=== PATIENT | male | born 2000 | race Caucasian/White ===

== ENCOUNTER 2021-02-03 13:19 | Emergency (ER) | payer BC ==
--- NOTE | 2021-02-03 14:10 | EDM.PDOC ---
ED HPI GENERAL MEDICAL PROBLEM - General Chief Complaint: Back Pain or Injury Stated Complaint: MIDDLE BACK SHOOTING PAIN Time Seen by Provider: 02/03/21 13:55 Source of Information: Reports: Patient, RN. Denies: Old Records History Limitations: Reports: No Limitations - History of Present Illness INITIAL COMMENTS - FREE TEXT/NARRATIVE: 20 yo male from [place] is here working on the [email or web address]. He is a new hire and so far has only been through orientation. He really hasn't had to do any physical labor up to now. Before this he was unemployed for roughly 3 mos. Last night he was walking across a parking lot and felt sudden onset of severe low back pain that almost brought him to his knees. He was able to make it back to his hotel and slept well. Today he woke with mild pain only and then later he was again walking and felt the same intense pain. He thinks the pain went down both legs. No bowel or bladder incont. No hx of back trauma. No flank pain. Onset: Sudden Onset Date: 02/02/21 Duration: Hour(s):, Waxing/Waning Location: Reports: Back (low) Quality: Reports: Sharp, Stabbing Severity: Moderate (now, was worse) Improves with: Reports: Rest Worsens with: Reports: Movement (seems to occur after/during walking) Context: Reports: Other (See HPI) Associated Symptoms: Reports: No Other Symptoms. 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) - Related Data Allergies Allergy/AdvReac Type Severity Reaction Status Date / Time antibiotic Allergy Other Uncoded 02/03/21 13:43 Home Meds: Home Meds NK [No Known Home Meds] 02/03/21 [History] Past Medical History Endocrine/Metabolic History: Reports: Obesity/BMI 30+ - Past Surgical History Head Surgeries/Procedures: Reports: None Endocrine Surgical History: Reports: None Dermatological Surgical History: Reports: None Social & Family History - Tobacco Use Used Tobacco, but Quit: No Second Hand Smoke Exposure: No - Caffeine Use Caffeine Use: Reports: None - Recreational Drug Use Recreational Drug Use: No ED ROS GENERAL - Review of Systems Review Of Systems: See Below Constitutional: Reports: No Symptoms Respiratory: Reports: No Symptoms Cardiovascular: Reports: No Symptoms GI/Abdominal: Reports: No Symptoms Musculoskeletal: Reports: Back Pain (low) Skin: Reports: No Symptoms Neurological: Reports: No Symptoms Psychiatric: Reports: No Symptoms ED EXAM,LOWER BACK PAIN/INJURY - Physical Exam Exam: See Below Exam Limited By: No Limitations General Appearance: Alert, WD/WN, No Apparent Distress, Obese Eye Exam: Bilateral Eye: Normal Inspection Ears: Normal External Exam, Normal Canal, Hearing Grossly Normal Nose: Normal Inspection, No Blood Throat/Mouth: Normal Inspection, Normal Lips, Normal Oropharynx, Normal Voice, No Airway Compromise Head: Atraumatic, Normocephalic Neck: Normal Inspection Respiratory/Chest: No Respiratory Distress, Lungs Clear, Normal Breath Sounds, No Accessory Muscle Use Cardiovascular: Regular Rate, Rhythm, No Edema GI/Abdominal: Normal Bowel Sounds, Soft, Non-Tender Back Exam: Normal Inspection, Decreased Range of Motion (limited only with flexion/extension). No: CVA Tenderness (R), CVA Tenderness (L), Muscle Spasm, Paraspinal Tenderness, Vertebral Tenderness Extremities: Normal Inspection, No Pedal Edema. No: Non-Tender Neurological: Alert, Normal Mood/Affect, CN II-XII Intact, No Motor/Sensory Deficits, Oriented x 3 Psychiatric: Normal Affect, Normal Mood Skin Exam: Warm, Dry, Intact, Normal Color, No Rash Course - Vital Signs Last Recorded V/S: Last Vital Signs Temp 36.7 C 02/03/21 13:47 Pulse 64 02/03/21 13:47 Resp 16 02/03/21 13:47 BP 125/53 L 02/03/21 13:47 Pulse Ox 100 02/03/21 13:47 - Orders/Labs/Meds Labs: Laboratory Tests 02/03/21 Range/Units 13:50 Urine Color Yellow (YELLOW) Urine Appearance Clear (CLEAR) Urine pH 5.5 (5.0-8.0) Ur Specific [place] >= 1.030 (1.008-1.030) Urine Protein Negative (NEGATIVE) mg/dL Urine Glucose (UA) Negative (NEGATIVE) mg/dL Urine Ketones Negative (NEGATIVE) mg/dL Urine Occult Blood Negative (NEGATIVE) Urine Nitrite Negative (NEGATIVE) Urine Bilirubin Negative (NEGATIVE) Urine Urobilinogen 0.2 (0.2-1.0) EU/dL Ur Leukocyte Esterase Negative (NEGATIVE) Urine RBC 0-5 (0-5) Urine WBC 0-5 (0-5) Ur Epithelial Cells Not seen Amorphous Sediment Not seen Urine Bacteria Rare Urine Mucus Few Departure - Departure Time of Disposition: 14:20 Disposition: Home, Self-Care 01 Condition: Good Clinical Impression: Low back pain Qualifiers: Chronicity: acute Back pain laterality: unspecified Sciatica presence: without sciatica Qualified Code(s): M54.5 - Low back pain - Discharge Information *PRESCRIPTION DRUG MONITORING PROGRAM REVIEWED*: Not Applicable *COPY OF PRESCRIPTION DRUG MONITORING REPORT IN PATIENT JOSE F: Not Applicable Instructions: Back Injury Prevention, [id number] Referrals: PCP,None [Primary Care Provider] - Additional Instructions: Take ibuprofen 800 mg every 8 hrs with food. Add acetaminophen as needed for added relief. Do hamstring stretches every day for a few minutes. Avoid lifting, or bending over the weekend. Light walking is allowed. Recheck in urgent care on Friday if not better. Sepsis Event Note (ED) - Evaluation Sepsis Screening Result: No Definite Risk - Focused Exam Vital Signs: Vital Signs Temp Pulse Resp BP Pulse Ox 02/03/21 13:47 36.7 C 64 16 125/53 L 100 02/03/21 13:44 36.7 C 64 16 125/53 L 100
== END 2021-02-03 14:22 | disposition home or self-care (01) ==
LOC: JP.ED 13:19
DX: M54.5 Low back pain (principal); E66.9 Obesity, unspecified; Z88.1 Allergy status to other antibiotic agents; Z68.30 Body mass index [BMI] 30.0-30.9, adult
CPT/HCPCS: 81001; 99283

== ENCOUNTER 2021-02-18 11:08 | Emergency (ER) | payer BC ==
--- NOTE | 2021-02-18 11:47 | EDM.PDOC ---
ED HPI GENERAL MEDICAL PROBLEM - General Chief Complaint: Fever Stated Complaint: SORE THROAT, DRY COUGH, CONGESTION Time Seen by Provider: 02/18/21 11:30 Source of Information: Reports: Patient, RN, RN Notes Reviewed History Limitations: Reports: No Limitations - History of Present Illness INITIAL COMMENTS - FREE TEXT/NARRATIVE: Patient comes in with 4 to 5-day history of sinus congestion, runny nose cough sore throat and mild teeth pain. Patient works the [employer]. He has taken allergy medications regularly in the past. He has not been taking these recently. He has tried Sudafed and Zyrtec in the last couple of days without significant relief. Onset: Gradual Onset Date: 02/13/21 Duration: Getting Worse Location: Reports: Face Quality: Reports: Pressure Severity: Moderate Worsens with: Reports: None Context: Reports: Sick Contact Associated Symptoms: Reports: Cough, Fever/Chills, Headaches. 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(s) (Sudafed and an allergy medicine) - Related Data Allergies Allergy/AdvReac Type Severity Reaction Status Date / Time cefdinir Allergy Hives Verified 02/18/21 11:27 antibiotic Allergy Other Uncoded 02/03/21 13:43 Home Meds: Home Meds Cetirizine [ZyrTEC] 10 mg PO DAILY 02/18/21 [History] Clindamycin HCl 150 mg PO TID 10 Days #30 capsule 02/18/21 [Rx] Past Medical History Endocrine/Metabolic History: Reports: Obesity/BMI 30+ - Past Surgical History Head Surgeries/Procedures: Reports: None Endocrine Surgical History: Reports: None Dermatological Surgical History: Reports: None Social & Family History - Tobacco Use Tobacco Use Status *Q: Never Tobacco User - Caffeine Use Caffeine Use: Reports: None - Recreational Drug Use Recreational Drug Use: No ED ROS ENT - Review of Systems Review Of Systems: See Below Constitutional: Reports: Fever, Chills, Malaise HEENT: Reports: Dental Pain, Rhinitis, Throat Pain, Other (Postnasal drip). Denies: Throat Swelling Respiratory: Reports: Cough. Denies: Sputum Cardiovascular: Reports: No Symptoms Endocrine: Reports: Fatigue GI/Abdominal: Reports: No Symptoms Musculoskeletal: Reports: No Symptoms Skin: Reports: No Symptoms Neurological: Reports: No Symptoms Psychiatric: Reports: No Symptoms Hematologic/Lymphatic: Reports: No Symptoms Immunologic: Reports: No Symptoms ED EXAM, ENT - Physical Exam Exam: See Below Exam Limited By: No Limitations General Appearance: Alert, Mild Distress Eye Exam: Bilateral Eye: PERRL Ears: Normal External Exam, Normal Canal, Normal TMs Nose: Nasal Discharge, Nasal Tenderness, Injected Turbinates Mouth/Throat: Normal Gums, Normal Lips, Dental Tenderness, Hoarse Voice, Throat Pain. No: Tonsillar Exudates, Tonsillar Swelling, Uvular Deviation, Uvular Edema Head: Atraumatic, Normocephalic, Facial Tenderness, Sinus Tenderness Neck: Normal Inspection, Supple, Non-Tender, Full Range of Motion Respiratory/Chest: No Respiratory Distress, Lungs Clear, Normal Breath Sounds, No Accessory Muscle Use, Chest Non-Tender Cardiovascular: Normal Peripheral Pulses, Regular Rate, Rhythm, No Edema GI/Abdominal: Normal Bowel Sounds, Soft, Non-Tender Neurological: Alert, Oriented, CN II-XII Intact, Normal Cognition Psychiatric: Normal Affect, Normal Mood Skin: Warm, Dry, Intact, Normal Color Lymphatic: No Adenopathy Course - Vital Signs Last Recorded V/S: Last Vital Signs Temp 36.6 C 02/18/21 11:26 Pulse 94 02/18/21 11:26 Resp 16 02/18/21 11:26 BP 182/77 H 02/18/21 11:26 Pulse Ox 98 02/18/21 11:26 - Re-Assessments/Exams Free Text/Narrative Re-Assessment/Exam: 02/18/21 12:00 Due to ongoing pressure in the maxillary sinus as well as teeth pain will prescribe antibiotic. Patient encouraged to drink plenty of fluids, get plenty of rest may use nasal saline spray to help nasal passages. Take pills 3 times a day till gone do not miss any doses Departure - Departure Time of Disposition: 12:21 Disposition: Home, Self-Care 01 Condition: Fair Clinical Impression: Sinusitis - Discharge Information *PRESCRIPTION DRUG MONITORING PROGRAM REVIEWED*: Not Applicable *COPY OF PRESCRIPTION DRUG MONITORING REPORT IN PATIENT JOSE F: Not Applicable Prescriptions: Clindamycin HCl 150 mg PO TID 10 Days #30 capsule Instructions: Sinusitis, Adult, [id number] Referrals: PCP,None [Primary Care Provider] - Forms: ED Department Discharge Additional Instructions: May use saline spray to help with congestion. Continue to use allergy medicines on a daily basis. Take all antibiotics until gone. Return to clinic or ER if symptoms do not improve or worsen. Sepsis Event Note (ED) - Evaluation Sepsis Screening Result: No Definite Risk - Focused Exam Vital Signs: Vital Signs Temp Pulse Resp BP Pulse Ox 02/18/21 11:26 36.6 C 94 16 182/77 H 98 02/18/21 11:23 36.6 C 94 16 182/77 H 98 - Assessment/Plan Assessment:: Acute sinusitis with maxillary tenderness and tooth pain Plan: Antibiotics 3 times daily for 10 days
== END 2021-02-18 12:21 | disposition home or self-care (01) ==
LOC: JP.ED 11:08
DX: J01.90 Acute sinusitis, unspecified (principal); K08.89 Other specified disorders of teeth and supporting structures; E66.9 Obesity, unspecified; Z68.36 Body mass index [BMI] 36.0-36.9, adult; Z88.1 Allergy status to other antibiotic agents
CPT/HCPCS: 99282; 99283